=== PATIENT | female | born 1990 | race Caucasian/White ===

== ENCOUNTER → 2018-04-20 09:12 | Outpatient (CLI) | payer OTHER, SELFPAY ==
[2018-04-20 09:49] LABS: Add Manual Diff / Slide Review NO; Basophils Percent Auto 0.4 % (0-2); Eosinophils Percent Auto 1.5 % (2-4); Hematocrit 38.3 % (36-46); Hemoglobin 13.1 g/dL (12.0-16.0); Lymphocytes Percent Auto 24.4 % (25-40); Mean Corpuscular HGB Conc 34.3 % (30-36); Mean Corpuscular Hemoglobin 30.3 PG (26-34); Mean Corpuscular Volume 88.3 fL (80-100); Neutrophils Absolute Auto 9000 /uL (3000-5900); Neutrophils Percent Auto 67.7 % (50-75); Platelet Count 308 X10^3/uL (150-400); Red Blood Cell Count 4.34 X10^6/uL (4.0-5.2); Red Cell Distribution Width 14.4 % (11.6-14.8); White Blood Cell Count 13.3 X10^3/uL (4.5-11.0)
[2018-04-20 10:41] LABS: Appearance Urine UA CLEAR; Bilirubin Urine UA NEGATIVE (NEGATIVE); Color Urine UA YELLOW; Glucose Urine UA NEGATIVE (Normal); Ketones Urine UA NEGATIVE (NEGATIVE); Leukocyte Esterase Urine UA NEGATIVE (NEGATIVE); Nitrite Urine UA Negative (Negative); Occult Blood Urine UA NEGATIVE (Negative); Protein Urine UA NEGATIVE (Negative); pH Urine UA 7.5 (4.5-8.0)
[2018-04-20 11:47] LABS: Hepatitis B Surface Antigen NEGATIVE s/c (NEGATIVE); Rubella Antibody IgG 93.1 IU/mL (>15)
[2018-04-20 12:09] LABS: HIV 1 and 2 Antibody NEGATIVE (NEGATIVE); Hep C Virus Ab w/Reflex Quant NEGATIVE s/c (NEGATIVE)
[2018-04-21 17:31] LABS: Free T4, Direct Thyroxine 1.19 ng/dL (0.78-2.19)
[2018-04-21 17:45] LABS: Thyroid Stimulating Hormone 2.04 uIU/mL (0.47-4.68)
[2018-04-22 14:56] LABS: HSV 2 IGG AB < 0.90 index (< 0.90); HSV1IGG < 0.90 index (< 0.90)
[2018-04-28 20:28] LABS: Rapid Plasma Reagin NON-REACTIVE
== END ==
PROVIDERS: Family Provider Specialist; PCP Specialist; Visit Provider Specialist
DX: Z34.91 Encounter for supervision of normal pregnancy, unspecified, first trimester (principal); Z3A.01 Less than 8 weeks gestation of pregnancy; Z3A.09 9 weeks gestation of pregnancy
CPT/HCPCS: 36415; 80055; 81003; 84439; 84443; 86695; 86696; 86703; 86787; 86803; 86850; 86900; 86901; 87086

== ENCOUNTER → 2018-07-10 07:04 | Outpatient (CLI) | payer OTHER, SELFPAY ==
--- NOTE | 2018-07-10 07:05 | DI.US.S_ITS ---
PROCEDURE: US OB >= 14 WEEKS FETUS INDICATIONS: ANATOMY OUTSIDE/PRIOR DATING DATA: Last menstrual period (LMP): Unknown. LMP-based estimated date of delivery (LIGIA): N./A.. First dating scan (date and location): 04/05/18. Estimated date of delivery (LIGIA) from first dating scan: 11/25/18. TECHNIQUE: Real-time scanning was performed of the fetus, with image documentation and biometric measurements. Endovaginal scanning: No COMPARISON: [facility], , OB >= 14 WEEKS FETUS, 07/05/2018, 15:43. FINDINGS: General: A single living intrauterine gestation is present. Presentation: Transverse. Placenta: Placental position is anterior, and low lying with the inferior margin of the placenta extending to roughly with a 1.4 cm from the internal cervical os. Amniotic fluid index: 14.0 cm, normal range is 5-24 cm. heart rate: 136 beats per minute. Maternal cervical canal: 3.9 cm long. Normal lower limit is 2.5 cm. biometrics: Biparietal diameter: 20 weeks 1 day Head circumference: 20 weeks 2 days Abdominal circumference: 20 weeks 3 days Femur length: 21 weeks 4 days Estimated gestational age from initial scan: 20 weeks 2 days Composite gestational age from present scan: 21 weeks 1 day Estimated weight and percentile: 440 g; 91st percentile Measurement variability for biometric dating: +/- 7 days from 14 weeks to 15 weeks 6 days gestation, +/- 10 days from 16 weeks to 21 weeks 6 days gestation, +/- 2 weeks from 22 weeks to 27 weeks 6 days gestation, +/- 3 weeks for 28 weeks gestation or later. weight reference: 4500 g or EFW >90/95% is considered macrosomia or large for gestational age. EFW <10% is small for gestational age. EFW 5% or less is considered intra-uterine growth restriction. Anatomic survey: Neuro: Ventricles are non-dilated at less than 10 mm. Cisterna magna is normal at 3-11 mm. Cerebellum is normal in size and morphology. Nuchal skin fold: Normal at less than 6 mm between 14-21 weeks gestational age. Face: Nose and lips, facial profile are normal. Spine: Suboptimally visualized. Heart: 4-chambered heart is present, with normal ventricular outflow tracts. Diaphragm: Diaphragm is intact. Stomach: Left-sided stomach is present. Kidneys: No hydronephrosis. Normal is less than 5 mm in 2nd trimester, less than 7 mm in 3rd trimester. Cord: 3-vessel cord has orthotopic insertion. Bladder: Normal in size. Extremities: All 4 extremities identified. IMPRESSION: 1. Single living IUP redemonstrated and interval growth is greater than expected with the estimated weight 99th percentile. Followup recommended. 2. spine not well seen otherwise normal anatomic survey. 3. Low lying placenta which can be reevaluated on followup exam. Dictated by: Petar Jorgensen [facility] Interpreted: Susan Kirkpatrick MD on 07/10/2018 at 8:30 Approved by: Susan Kirkpatrick MD, PhD on 07/10/2018 at 16:20
== END ==
PROVIDERS: Family Provider Specialist; PCP Specialist; Visit Provider Specialist
DX: Z34.92 Encounter for supervision of normal pregnancy, unspecified, second trimester (principal); Z3A.21 21 weeks gestation of pregnancy
CPT/HCPCS: 76811

== ENCOUNTER → 2018-08-10 07:29 | Outpatient (CLI) | payer OTHER, SELFPAY ==
--- NOTE | 2018-08-10 07:30 | DI.US.S_ITS ---
PROCEDURE: US OB LIMITED INDICATIONS: FOLLOW-UP LOW-LYING PLACENTA, SPINE OUTSIDE/PRIOR DATING DATA: Last menstrual period (LMP): Unknown. LMP-based estimated date of delivery (LIGIA): Not available. First dating scan (date and location): 04/05/18, Dr. Amaral's office. Estimated date of delivery (LIGIA) from first dating scan: 11/25/18. TECHNIQUE: Real-time scanning was performed of the fetus, with image documentation. Endovaginal scanning: Not performed COMPARISON: None. FINDINGS: A single living intrauterine gestation is present. Presentation: Breech Placenta: Placental position is anterior, without previa. Amniotic fluid index: 10.7 cm, normal range is 5-24 cm. heart rate: 145 beats per minute. Maternal cervical canal: 4.4 cm long. Normal lower limit is 2.5 cm. Estimated gestational age from initial scan: 24 weeks, 5 days. spine has a normal sonographic appearance. The inferior placental edge is 3.7 cm from the internal cervical os. IMPRESSION: 1. Normal sonographic appearance of the spine. 2. Inferior placental edge 3.7 cm from the cervical os. Dictated by: Nemo Parson M.D. on 08/10/2018 at 8:49 Approved by: Nemo Parson M.D. on 08/10/2018 at 8:52
== END ==
PROVIDERS: Family Provider Specialist; PCP Specialist; Visit Provider Specialist
DX: O44.42 Low lying placenta NOS or without hemorrhage, second trimester (principal); Z3A.24 24 weeks gestation of pregnancy
CPT/HCPCS: 76815

== ENCOUNTER → 2018-08-12 08:06 | Outpatient (CLI) | payer OTHER, SELFPAY ==
[2018-08-12 08:46] LABS: Hematocrit 36.7 % (36-46); Hemoglobin 12.1 g/dL (12.0-16.0)
[2018-08-12 09:02] LABS: Hemoglobin A1C% w Est Avg Glu 5.2 % (4.0-6.0)
== END ==
PROVIDERS: PCP Specialist; Visit Provider Specialist
DX: Z34.82 Encounter for supervision of other normal pregnancy, second trimester (principal); E88.81 Metabolic syndrome and other insulin resistance
CPT/HCPCS: 36415; 83036; 85014; 85018; 86850

== ENCOUNTER → 2018-11-01 09:16 | Outpatient (CLI) | payer OTHER, SELFPAY ==
[2018-11-02 13:25] LABS: Strep Grp B PCR NEG for Grp B Strep
== END ==
PROVIDERS: Family Provider Specialist; PCP Specialist; Visit Provider Specialist
DX: Z34.83 Encounter for supervision of other normal pregnancy, third trimester (principal); Z3A.36 36 weeks gestation of pregnancy
CPT/HCPCS: 87653

== ENCOUNTER 2018-11-01 09:37 | Outpatient (CLI) | payer OTHER, SELFPAY ==
--- NOTE | 2018-11-01 10:32 | PM.OBTRLD ---
Visit Information Visit Information Date of evaluation: 11/01/18 Primary OB Provider: Luann Amaral Reason for Evaluation: Yes non-stress test non-stress test reason: hypertension/pre-eclampsia [facility] Social History Smoking Status: Never smoker Social History Smoking Status: Never smoker Evaluation Evaluation Baseline heart rate: 150 Variability: Moderate (11-25) monitor accelerations: Present monitor decelerations: Absent Contraction Frequency (minutes): 0 Diagnosis, Plan/Disposition Final Diagnosis (1) Essential hypertension affecting , antepartum: Current Visit: No Status: Acute (2) 36 weeks gestation of : Current Visit: Yes Status: Acute Plan/Disposition Plan: Reactive nonstress test continue weekly nonstress test OB Disposition: home
--- NOTE | 2018-11-01 10:35 | P.TNLD_ITS ---
Visit Information Visit Information Date of evaluation: 11/01/18 Primary OB Provider: Luann Amaral Reason for Evaluation: Yes non-stress test non-stress test reason: hypertension/pre-eclampsia [facility] Social History Smoking Status: Never smoker Social History Smoking Status: Never smoker Evaluation Evaluation Baseline heart rate: 150 Variability: Moderate (11-25) monitor accelerations: Present monitor decelerations: Absent Contraction Frequency (minutes): 0 Diagnosis, Plan/Disposition Final Diagnosis (1) Essential hypertension affecting , antepartum: Current Visit: No Status: Acute (2) 36 weeks gestation of : Current Visit: Yes Status: Acute Plan/Disposition Plan: Reactive nonstress test continue weekly nonstress test OB Disposition: home
== END 2018-11-01 10:36 | disposition home or self-care (01) ==
LOC: OB 11-02 14:08
PROVIDERS: Family Provider Specialist; PCP Specialist; Visit Provider Specialist
DX: O13.3 Gestational [pregnancy-induced] hypertension without significant proteinuria, third trimester (principal); Z3A.36 36 weeks gestation of pregnancy
CPT/HCPCS: 59025; 87653; G0378; G0379

== ENCOUNTER 2018-11-08 10:16 | Outpatient (CLI) | payer OTHER, SELFPAY ==
--- NOTE | 2018-11-08 10:52 | PM.OBTRLD ---
Visit Information Visit Information Date of evaluation: 11/08/18 Primary OB Provider: Luann Amaral Reason for Evaluation: Yes non-stress test non-stress test reason: hypertension/pre-eclampsia [facility] Social History Smoking Status: Never smoker Social History Smoking Status: Never smoker Exam Vital Signs (past 8 hours): BP 131/82 Evaluation Evaluation Baseline heart rate: 130 Variability: Moderate (11-25) monitor accelerations: Present monitor decelerations: Absent Contraction Frequency (minutes): 0 Category of Tracing: I Diagnosis, Plan/Disposition Final Diagnosis (1) Essential hypertension affecting , antepartum: Current Visit: No Status: Acute (2) 37 weeks gestation of : Current Visit: Yes Status: Acute Plan/Disposition Plan: continue weekly NSTs and OB visits OB Disposition: home
--- NOTE | 2018-11-08 10:55 | P.TNLD_ITS ---
Visit Information Visit Information Date of evaluation: 11/08/18 Primary OB Provider: Luann Amaral Reason for Evaluation: Yes non-stress test non-stress test reason: hypertension/pre-eclampsia [facility] Social History Smoking Status: Never smoker Social History Smoking Status: Never smoker Exam Vital Signs (past 8 hours): BP 131/82 Evaluation Evaluation Baseline heart rate: 130 Variability: Moderate (11-25) monitor accelerations: Present monitor decelerations: Absent Contraction Frequency (minutes): 0 Category of Tracing: I Diagnosis, Plan/Disposition Final Diagnosis (1) Essential hypertension affecting , antepartum: Current Visit: No Status: Acute (2) 37 weeks gestation of : Current Visit: Yes Status: Acute Plan/Disposition Plan: continue weekly NSTs and OB visits OB Disposition: home
== END 2018-11-08 10:55 | disposition home or self-care (01) ==
LOC: LABOR 10:29 → OB 12:45
PROVIDERS: Family Provider Specialist; PCP Specialist; Visit Provider Specialist
DX: O10.019 Pre-existing essential hypertension complicating pregnancy, unspecified trimester (principal); Z3A.37 37 weeks gestation of pregnancy
CPT/HCPCS: 59025; G0378; G0379

== ENCOUNTER 2018-11-17 11:02 | Inpatient (IN) | payer OTHER, SELFPAY ==
--- NOTE | 2018-11-17 07:21 | SUR.OPER ---
Supine on Padded OR bed, head on pillow, safety belt at thigh, arms secured on padded arm boards at <90 degrees abduction. Bump under right buttock. Legs uncrossed with pillow under knees, gel pad to heels, tape over blanket to lower legs.
[2018-11-17] MEDS: CEFAZOLIN 2 GM/100 ML FROZ.PIGGY IV (08:10)
[2018-11-17] MEDS: ACETAMINOPHEN IV 1,000 MG/100 ML VIAL 400 MG IV (08:40)
--- NOTE | 2018-11-17 08:41 | SUR.OPER ---
VIABLE MALE INFANT DELIVERED AT 0832. CORD BLOOD AND PLACENTA TO OB WITH RN.
[2018-11-17] MEDS: LACTATED RINGERS 1,000 ML 42 ML IV (08:54)
[2018-11-17 09:08] VITALS: BP 127/64; PULSE 72; RESP 12; TEMP 36.3; O2SAT 96
[2018-11-17 09:13] VITALS: BP 139/76; PULSE 76; RESP 15; O2SAT 95
[2018-11-17 09:18] VITALS: BP 138/69; PULSE 70; RESP 15; O2SAT 96
[2018-11-17 09:23] VITALS: BP 138/73; PULSE 68; RESP 16; O2SAT 94
[2018-11-17 09:28] VITALS: BP 136/72; PULSE 70; RESP 15; TEMP 36.2; O2SAT 96
--- NOTE | 2018-11-17 09:40 | SUR.PHASEI ---
Pt transferred to center via bed. Report given to PETER Marie prior to transfer. Last vital signs stable. Fundus firm at 1-2 fingers below the umbilicus with small amount of free flowing red discharge noted. See PACU documentation for detailed assessment and vitals. Upon arrival to the [facility] PETER Marie to bedside; bedside assessment and fundal massage performed together. Cynthia to assume care of pt at this time.
[2018-11-17 12:12] VITALS: BP 124/77
[2018-11-17] MEDS: KETOROLAC 30 MG/ML VIAL IV ×2 (17:30→23:26)
[2018-11-17] MEDS: ONDANSETRON 4 MG/2 ML INJ IV (17:44)
[2018-11-17] MEDS: METFORMIN HCL 500 MG TABLET 1000 MG PO (21:19)
[2018-11-17] MEDS: LABETALOL 100 MG TABLET PO (21:19)
[2018-11-17] MEDS: LACTATED RINGERS 1,000 ML 100 ML IV (23:26)
[2018-11-18 05:35] LABS: Add Manual Diff / Slide Review NO; Basophils Absolute Auto 0 /uL (0-100); Basophils Percent Auto 0.3 % (0-2); Eosinophils Absolute Auto 100 /uL (0-450); Eosinophils Percent Auto 1.1 % (2-4); Hematocrit 27.3 % (36-46); Hemoglobin 9.3 g/dL (12.0-16.0); Lymphocytes Absolute Auto 2500 /uL (1100-4500); Lymphocytes Percent Auto 18.2 % (25-40); Mean Corpuscular HGB Conc 33.9 % (30-36); Mean Corpuscular Hemoglobin 30.7 PG (26-34); Mean Corpuscular Volume 90.4 fL (80-100); Monocytes Absolute Auto 900 /uL (0-900); Monocytes Percent Auto 6.5 % (3-14); Neutrophils Absolute Auto 10000 /uL (1500-7000); Neutrophils Percent Auto 73.9 % (50-75); Platelet Count 193 X10^3/uL (150-400); Red Blood Cell Count 3.02 X10^6/uL (4.0-5.2); Red Cell Distribution Width 15.3 % (11.6-14.8); White Blood Cell Count 13.5 X10^3/uL (4.5-11.0)
[2018-11-18] MEDS: KETOROLAC 30 MG/ML VIAL IV (05:50)
[2018-11-18] MEDS: FERROUS GLUCONATE 324 MG TABLET PO (08:30)
[2018-11-18] MEDS: METFORMIN HCL 500 MG TABLET 1000 MG PO (08:30)
[2018-11-18] MEDS: BUTALB/APAP/CAFFEINE 50/325/40 TABLET 1 EACH PO (10:59)
--- NOTE | 2018-11-18 11:28 | PM.OBDS.1 ---
Discharge Providers Date of admission: 11/17/18 11:02 Discharge Date: 11/18/18 Primary care physician: Luann Amaral MD Consults: 11/17/18 17:09 Consult to [place] Routine Comment: Discharge provider: Luann Amaral MD Summary Date Patient Seen: 11/18/18 Time Patient Seen: 11:29 Procedures: Repeat low-transverse section Hospital Course: Patient was admitted for repeat low-transverse section at term. She did very well . No signs or symptoms of preeclampsia. She was urinating, ambulating, tolerating a regular diet. She was passing gas and pain was controlled. Blood pressure 125/80, pulse 74, temperature 99.3? Abdomen is soft, nontender. Uterus is firm, at U, nontender. extremities with trace edema and nontender. Patient is O negative and will receive RhoGAM as the baby is Rh positive. She is rubella immune Peripartum Data Delivery Method: Section complications: none 1: Gender: Male Disposition of : home Discharge Diagnosis (1) Delivered by section: Status: Acute (2) Essential hypertension: Status: Acute (3) Insulin resistance syndrome: Status: Acute (4) Acute on chronic blood loss anemia: Status: Acute Status at Discharge Cognitive/behavioral status at discharge: oriented Overall status at discharge: patient is progressing back to baseline Time Spent with Patient Total time spent providing and/or coordinating discharge services: Less than 30 minutes Objective Labs Result Diagrams: 11/18/18 05:22 Labs: Laboratory Results - last 24 hr 11/18/18 05:22 WBC 13.5 H RBC 3.02 L Hgb 9.3 L Hct 27.3 L MCV 90.4 MCH 30.7 MCHC 33.9 RDW 15.3 H Plt Count 193 Neut % (Auto) 73.9 Lymph % (Auto) 18.2 L [place] % (Auto) 6.5 Eos % (Auto) 1.1 L Baso % (Auto) 0.3 Neut # (Auto) 45666 H Lymph # (Auto) 2500 [place] # (Auto) 900 Eos # (Auto) 100 Baso # (Auto) 0 Exam Vital Signs (past 8 hours): Oxygen Delivery Method Room Air Discharge Plan Discharge Plan Patient Disposition: Home Discharge Med Rec/Prescriptions Prescriptions: New oxycodone-acetaminophen 5-325 mg Tablet 2 tab PO Q4HR PRN (Reason: Pain, Severe (7-10)) Qty: 40 RF: 0 ibuprofen 600 mg Tablet 600 mg PO Q6HR PRN (Reason: As Needed For Fever/Mild Pain) Qty: 30 RF: 0 docusate sodium 250 mg Capsule 250 mg PO DAILY Qty: 20 RF: 0 ferrous gluconate 324 mg (38 mg iron) Tablet 324 mg PO BID Qty: 60 RF: 0 Continued metformin [Glucophage] 1,000 MG tablet 1,000 mg PO BIDCC Qty: 60 RF: 3 Double Electric Breast Pump Qty: 1 RF: 0 prenat.vits,ash,hkl-wrjc-rgdrk [ Vitamin] tablet 1 tab PO DAILY RF: 0 zwvciuworc-apxlfvljzu-mpw-cod [id number] mg capsule 1 cap PO Q4H PRN (Reason: headache) Qty: 20 RF: 0 labetalol 100 mg tablet 100 mg PO BID Qty: 60 RF: 0 Follow up/Referrals: Luann Amaral MD [Primary Care Provider] - 1 Week (Remove Aquacel dressing) Provider Discharge Instructions Diet: Regular Activity: nothing in vagina for 4 weeks do not lift over 20 lb Skin/Wound/Dressing Care Report to your healthcare provider any signs of infection, such as:: chills, fever, increased pain and unusual redness Dressing: ok to get bandage wet Discharge Data Primary Care Provider: Luann Amaral Attending Provider: Luann Amaral Admit Date/Time: 11/17/18 11:02
--- NOTE | 2018-11-18 11:32 | P.DS_ITS ---
Discharge Providers Date of admission: 11/17/18 11:02 Discharge Date: 11/18/18 Primary care physician: Luann Amaral MD Consults: 11/17/18 17:09 Consult to [employer] Routine Comment: Discharge provider: Luann Amaral MD Summary Date Patient Seen: 11/18/18 Time Patient Seen: 11:29 Procedures: Repeat low-transverse section Hospital Course: Patient was admitted for repeat low-transverse section at term. She did very well . No signs or symptoms of preeclampsia. She was urinating, ambulating, tolerating a regular diet. She was passing gas and pain was controlled. Blood pressure 125/80, pulse 74, temperature 99.3? Abdomen is soft, nontender. Uterus is firm, at U, nontender. extremities with trace edema and nontender. Patient is O negative and will receive RhoGAM as the baby is Rh positive. She is rubella immune Peripartum Data Delivery Method: Section complications: none 1: Gender: Male Disposition of : home Discharge Diagnosis (1) Delivered by section: Status: Acute (2) Essential hypertension: Status: Acute (3) Insulin resistance syndrome: Status: Acute (4) Acute on chronic blood loss anemia: Status: Acute Status at Discharge Cognitive/behavioral status at discharge: oriented Overall status at discharge: patient is progressing back to baseline Time Spent with Patient Total time spent providing and/or coordinating discharge services: Less than 30 minutes Objective Labs Result Diagrams: 11/18/18 05:22 Labs: Laboratory Results - last 24 hr 11/18/18 05:22 WBC 13.5 H RBC 3.02 L Hgb 9.3 L Hct 27.3 L MCV 90.4 MCH 30.7 MCHC 33.9 RDW 15.3 H Plt Count 193 Neut % (Auto) 73.9 Lymph % (Auto) 18.2 L [place] % (Auto) 6.5 Eos % (Auto) 1.1 L Baso % (Auto) 0.3 Neut # (Auto) 61679 H Lymph # (Auto) 2500 [place] # (Auto) 900 Eos # (Auto) 100 Baso # (Auto) 0 Exam Vital Signs (past 8 hours): Oxygen Delivery Method Room Air Discharge Plan Discharge Plan Patient Disposition: Home Discharge Med Rec/Prescriptions Prescriptions: New oxycodone-acetaminophen 5-325 mg Tablet 2 tab PO Q4HR PRN (Reason: Pain, Severe (7-10)) Qty: 40 RF: 0 ibuprofen 600 mg Tablet 600 mg PO Q6HR PRN (Reason: As Needed For Fever/Mild Pain) Qty: 30 RF: 0 docusate sodium 250 mg Capsule 250 mg PO DAILY Qty: 20 RF: 0 ferrous gluconate 324 mg (38 mg iron) Tablet 324 mg PO BID Qty: 60 RF: 0 Continued metformin [Glucophage] 1,000 MG tablet 1,000 mg PO BIDCC Qty: 60 RF: 3 Double Electric Breast Pump Qty: 1 RF: 0 prenat.vits,ash,bqt-ahhz-otufd [ Vitamin] tablet 1 tab PO DAILY RF: 0 bftjtcpzcj-xqmwqnsvvr-sus-cod [id number] mg capsule 1 cap PO Q4H PRN (Reason: headache) Qty: 20 RF: 0 labetalol 100 mg tablet 100 mg PO BID Qty: 60 RF: 0 Follow up/Referrals: Luann Amaral MD [Primary Care Provider] - 1 Week (Remove Aquacel dressing) Provider Discharge Instructions Diet: Regular Activity: nothing in vagina for 4 weeks do not lift over 20 lb Skin/Wound/Dressing Care Report to your healthcare provider any signs of infection, such as:: chills, fever, increased pain and unusual redness Dressing: ok to get bandage wet Discharge Data Primary Care Provider: Luann Amaral Attending Provider: Luann Amaral Admit Date/Time: 11/17/18 11:02
[2018-11-18] MEDS: IBUPROFEN 600 MG TABLET PO (13:16)
[2018-11-18] MEDS: RHO(D) IMMUNE GLOBULIN 1,500 UNIT SYRINGE 1500 UNIT IM (14:20)
[2018-11-18 14:21] VITALS: BP 120/75; PULSE 81; RESP 16; TEMP 37
== END 2018-11-18 15:00 | disposition home or self-care (01) | DRG 787 ==
PROVIDERS: Admitting Provider Specialist; PCP Specialist; Visit Provider Specialist
PROC: (CPT 59514; principal; 2018-11-17 07:45)
DX: O34.219 Maternal care for unspecified type scar from previous cesarean delivery (principal); D62 Acute posthemorrhagic anemia; Z3A.39 39 weeks gestation of pregnancy; Z37.0 Single live birth; O16.4 Unspecified maternal hypertension, complicating childbirth; D64.9 Anemia, unspecified; E88.81 Metabolic syndrome and other insulin resistance
CPT/HCPCS: 36415; 59050; 59510; 59514; 85025; 86850; 86900; 86901; G0379; J0131; J0690; J1885; J2274; J2405; J2590; J2790